=== PATIENT | female | born 1960 | race Caucasian/White ===

== ENCOUNTER → 2017-10-07 | Outpatient (CLI) | payer SELFPAY ==
[2016-04-06 11:24] VITALS: BP 154/89
--- NOTE | 2017-10-07 17:00 | MG ---
HISTORY: SCREENING Comparison: September 28, 2014 FINDINGS: Bilateral CC and MLO projections of the right and left breast were obtained. Heterogeneously dense f ibroglandular tissue is seen to be present without suspicious interval change. No significant braxton ectural distortion, mass or clustered microcalcifications can be observed to suggest malignancy. No skin thickening or nipple retraction is appreciated. No pathological lymphadenopathy can be identif ied. IMPRESSION: NO RADIOGRAPHIC EVIDENCE OF MALIGNANCY. ACR CATEGORY I - NEGATIVE EXAM. FOLLOW-UP EXAM 1 YEAR. Diagnostic CAD was utilized and reviewed. * 0 (ZERO) - ASSESSMENT INCOMPLETE; ADDITIONAL IMAGING IS NEEDED. * / (ONE) - NEGATIVE. * 2/II (TWO) - BENIGN FINDINGS. * 3/III (THREE) - PROBABLY BENIGN FINDING; SHORT INTERVAL FOLLOW-UP SUGGESTED. * 4/IV (FOUR) - SUSPICIOUS ABNORMALITY; BIOPSY SHOULD BE CONSIDERED. * 5/V - HIGHLY SUSPICIOUS OF MALIGNANCY; BIOPSY SHOULD BE PERFORMED. A NEGATIVE X-RAY REPORT SHOULD NOT DELAY BIOPSY IF A DOMINANT OR CLINICALLY SUSPICIOUS MASS IS PRESENT; 4 TO 8 PERCENT OF CANCERS ARE NOT IDENTIFIED BY X-RAY. A NEGA TIVE REPORT MAY REINFORCE THE CLINICAL IMPRESSION. ADENOSIS AND DENSE BREASTS MAY OBSCURE AN UNDERLY ING NEOPLASM. Reported By:
== END ==
LOC: RAD 09:10
PROVIDERS: ATTEND Specialist
DX: Z12.31 Encounter for screening mammogram for malignant neoplasm of breast (principal)
CPT/HCPCS: 77067

== ENCOUNTER 2020-05-16 18:54 | Inpatient (IN) ==
--- NOTE | 2020-05-16 19:59 | DR.GENAD ---
HPI Time Seen Time Seen by Provider: 05/16/20 19:45 PCP Primary Care Physician: debra HPI Comment HPI Comment: PATIENT 59YR OLD FEMALE WITH INCREASING SOB, COUGH AND FEVER TIMES 9 DAYS. GETTING WORSE. COVID POSITIVE 12 DAYS AAGO. PATIENT IS WEAK AND FATIGUE. SHE IS MORE SOB ON EXERTION AND O2 SAT DECREASES ON EXERTION. PATIENT ALSO HAVE GENERALIZED MUSCLE PAIN. TEMP WAS HIGHER THEN WENT LOW GRADE NOW SPIKING TEMP AGAIN. PATIENT SAID SHE IS NOT FEELING WELL. HISTORY HTN AND DM. SHE IS A NON SMOKER. Complaint/Symptoms Chief Complaint Doctors Comments: FEVER, COUGH AND SOB. COVID POSITIVE 12DAYS AGO. Chief Complaint:: PT STATES" I BEEN SICK FOR 12 DAYS I TESTED POSITIVE FOR THE COVID 19. I'M BURNING UP WITH A FEVER AND CAN'T BREATHE. I'VE GOT A RASH UNDER MY BREAST AND I'VE HAD DIARRHEA" COVID-19 Coronavirus risk:travel/contact w/high risk person: Yes Has patient experienced Coronavirus symptoms: Yes Coronavirus symptoms experienced: Fever and Shortness of Breath Nurses notes reviewed Nurses Notes Review: Yes Source History Provided: Patient Mode of Arrival Mode of Arrival: Ambulatory Timing Onset of Chief Complaint: 05/03/20 Came on: Gradually Duration Duration: Constant Duration: Days Severity Severity: Moderate Modifying Factors Worsens:: EXERTION Improves:: REST. Associated Signs and Symptoms Associated Signs and Symptoms: GENERALIZED WEAKNESS. Other History Other History: HISTORY DMAND HTN. PMH PMH Past Medical History: Yes Past Medical History: Anxiety, Depression, Diabetes, Hypertension and Hypothyroidism Past Surgical History: Yes Surgical History: and Cholecystectomy Family History History of Family Medical Conditions: No Social History Do you use any recreational Drugs:: No Travel Risk Coronavirus risk:travel/contact w/high risk person: Yes Has patient experienced Coronavirus symptoms: Yes Coronavirus symptoms experienced: Fever and Shortness of Breath Infectious screening In the last 2 months have you had wt loss of >10#?: NO Have you had fever, night sweats or hemotysis?: No Have you traveled outside the country in the last 6 months?: No Isolation: Standard ROS Review of Systems Constitutional: See HPI, Chills, Fever, Malaise, Weakness and Fatigue Eyes: No Symptoms Reported and See HPI; negative Blurred Vision and Diplopia ENTM: See HPI and Nose Congestion; negative Ear Pain, Nose Discharge and Throat Pain Respiratoy: Non-Productive Cough and Short of Breath; negative Wheezing Cardiovascular: See HPI and Chest Pain; negative Edema Gastrointestinal/Abdominal: No Symptoms Reported and See HPI; negative Abdominal Pain, Nausea and Vomiting Genitourinary: No Symptoms Reported and See HPI; negative Dysuria, Frequency and Hematuria Neurological: See HPI, Headache, Weakness and Dizziness Musculoskeletal: See HPI and Muscle Pain; negative Back Pain Integumentary: See HPI and Dryness; negative Change in Color, Rash and Juandice Hematologic/Lymphatic: No Symptoms Reported and See HPI; negative Easy Bruising and Swollen Glands Endocrine: See HPI and Decreased Appetite; negative Increased Thirst and Increased Urine Psychiatric: No Symptoms Reported and See HPI All Other Systems: Reviewed and Negative PE Vital Signs Vitals: Temperature 98.2 F Pulse Rate [Right] 81 Pulse Rate 88 Respiratory Rate 22 Blood Pressure [Left Arm] 140/68 Blood Pressure 126/60 O2 Sat by Pulse Oximetry 95 General Limitations: No Limitations General Appearance: Alert and In No Apparent Distress Head Head Exam: Normal Inspection and Atraumatic Eyes Eye exam: Normal Appearance and PERRL ENT ENT Exam: Normal Exam, Normal Oropharynx, Normal External Ear Exam and TM's Normal Bilaterally External Ear Exam: Normal External Inspection; negative Mastoid Tenderness TM/Canal Exam: Bilateral: Normal Nose Exam: Normal Nose Exam; negative Sinus Tenderness Mouth Exam: Normal Inspection; negative Lip Swelling and Tongue Swelling Throat Exam: Normal Inspection; negative Tonsillar Erythema, Tonsillomegaly and Tonsillar Exudate Neck Neck Exam: Normal Inspection and Trachea Midline; negative Tenderness and Lymphadenopathy Chest Chest Inspection: Normal Inspection and Symmetric Chest Wall Rise; negative Tenderness Respiratory Respiratory Exam: Normal Lung Sounds Bilat and Respiratory Distress; negative Accessory Muscle Use and Chest Wall Tenderness Respiratory Exam: Bilateral: Rhonchi and Lower: Rhonchi Cardiovascular Cardiovascular Exam: Regular Rate, Normal Rhythm and Normal Heart Sounds; negative Systolic Murmur and Diastolic Murmur Abdominal Exam Abdominal Exam: Normal Inspection, Normal Bowel Sounds and Soft; negative Tenderness Extremities Extremities Exam: Normal Inspection and Normal Capillary Refill; negative Tenderness, Edema and Calf Tenderness Back Back Exam: Normal Inspection; negative (R) CVA Tenderness and (L) CVA Tenderness Neurologic Neurological Exam: Alert, Oriented X3 and CN II-XII Intact; negative Motor Sensory Deficit Psychiatric Psychiatric Exam: Normal Affect and Normal Mood Skin Skin Exam: Dry MDM Differential Diagnosis Differential Diagnosis: PNEUMONIA, BRONCHITIS, UTI, SEPSIS, COVID POSITIVE. COURSE Treatment Treatment: SEE ORDERS. NS AND ROCEPHIN IN ER. Consultation Consultation Comments: DISCUSSED PATIENT WITH DR. TIWARI. HE WILL ADMIT PATIENT. Education/Counseling Education/Counseling: Patient Educated On: Diagnosis ROR Labs Reviewed Laboratory Results Reviewed?: Yes Result Diagrams: 05/17/20 04:00 05/17/20 04:00 Laboratory: WBC 7.2 X10^3/uL (3.6-10.0) 05/16/20 20:15 RBC 3.86 X10^6/uL (3.5-5.4) 05/16/20 20:15 Hgb 11.0 g/dL (12.0-16.0) L 05/16/20 20:15 Hct 32.8 % (36.0-47.0) L 05/16/20 20:15 MCV 84.9 fL (80.0-100.0) 05/16/20 20:15 MCH 28.5 pg (27.0-34.0) 05/16/20 20:15 MCHC 33.6 g/dL (33.0-35.0) 05/16/20 20:15 RDW 14.1 % (11.6-16.5) 05/16/20 20:15 Plt Count 537 X10^3/uL (150.0-450.0) H 05/16/20 20:15 MPV 6.5 fL (7.4-11.0) L 05/16/20 20:15 Neut % (Auto) 54.9 % (42.0-75.0) 05/16/20 20:15 Lymph % (Auto) 35.9 % (21.0-51.0) 05/16/20 20:15 [place] % (Auto) 6.3 % (0.0-13.0) 05/16/20 20:15 Eos % (Auto) 1.8 % (0.9-2.9) 05/16/20 20:15 Baso % (Auto) 1.1 % (0.2-1.0) H 05/16/20 20:15 Neut # (Auto) 3.9 x10^3/uL (2.2-4.8) 05/16/20 20:15 Lymph # (Auto) 2.6 X10^3/uL (1.3-2.9) 05/16/20 20:15 [place] # (Auto) 0.5 x10^3/uL (0.3-0.8) 05/16/20 20:15 Eos # (Auto) 0.1 x10^3/uL (0.0-0.2) 05/16/20 20:15 Baso # (Auto) 0.1 X10^3/uL (0.0-0.1) 05/16/20 20:15 Absolute Nucleated RBC 0.0 /100WBC 05/16/20 20:15 Sample Site Rr 05/16/20 20:02 ABG pH 7.520 (7.35-7.45) H 05/16/20 20:02 ABG pCO2 34.0 mmHg (35.0-45.0) L 05/16/20 20:02 ABG pO2 66.0 mmHg (80.0-100.0) L 05/16/20 20:02 ABG HCO3 27.8 mmol/L (22-26) H 05/16/20 20:02 ABG O2 Saturation 95.0 % (90-100) 05/16/20 20:02 ABG Base Excess 5.0 mmol/L (-2.0-2.0) H 05/16/20 20:02 Jigar Test Pos 05/16/20 20:02 A-a Gradient 41.0 mmHg 05/16/20 20:02 FiO2 21.0 05/16/20 20:02 Blood Gas Comments Ivania well sw 05/16/20 20:02 Sodium 137 mmol/L (136-145) 05/16/20 20:15 Corrected Sodium 138 mmol/L (136-145) 05/16/20 20:15 Potassium 3.5 mmol/L (3.5-5.1) 05/16/20 20:15 Chloride 100 mmol/L (98-107) 05/16/20:15 Carbon Dioxide 28.0 mmol/L (21-32) 05/16/20 20:15 BUN 10 mg/dL (7-18) 05/16/20 20:15 Creatinine 0.88 mg/dL (0.55-1.02) 05/16/20 20:15 Est GFR (MDRD) Af Amer > 60 (>60) 05/16/20 20:15 Est GFR (MDRD) Non-Af > 60 (>60) 05/16/20 20:15 Glucose 142 mg/dL (65-99) H 05/16/20 20:15 Lactic Acid 1.5 mmol/L (0.4-2.0) 05/16/20 20:15 Calcium 8.8 mg/dL (8.5-10.1) 05/16/20 20:15 Corrected Calcium 10.0 mg/dL (8.5-10.1) 05/16/20 20:15 Ferritin 629 ng/mL (8-252) H 05/16/20 20:15 Total Bilirubin 0.20 mg/dL (0.2-1.0) 05/16/20 20:15 AST 85 Units/L (15-37) H 05/16/20 20:15 ALT 130 Units/L (12-78) H 05/16/20 20:15 Alkaline Phosphatase 60 Units/L (46-116) 05/16/20 20:15 Lactate Dehydrogenase 339 Units/L (81-234) H 05/16/20 21:02 C-Reactive Protein 143.40 mg/L (0-3.0) H 05/16/20 21:02 Total Protein 7.3 g/dL (6.4-8.2) 05/16/20 20:15 Albumin 2.5 g/dL (3.4-5.0) L 05/16/20 20:15 Globulin 4.8 g/dL (2.5-4.5) H 05/16/20 20:15 Albumin/Globulin Ratio 0.5 Ratio (1.1-2.1) L 05/16/20 20:15 Specimen Type Clean catch urine 05/16/20 19:59 Urine Color Yellow (YELLOW) 05/16/20 19:59 Urine Appearance Clear (CLEAR) 05/16/20 19:59 Urine pH 6.5 (5.0 - 8.0) 05/16/20 19:59 Ur Specific [place] 1.005 (1.000-1.030) 05/16/20 19:59 Urine Protein Negative (NEGATIVE) 05/16/20 19:59 Urine Glucose (UA) Negative (NEGATIVE) 05/16/20 19:59 Urine Ketones Negative (NEGATIVE) 05/16/20 19:59 Urine Occult Blood 1+ (NEGATIVE) 05/16/20 19:59 Urine Nitrite Negative (NEGATIVE) 05/16/20 19:59 Urine Bilirubin Negative (NEGATIVE) 05/16/20 19:59 Urine Urobilinogen Normal (NORMAL) 05/16/20 19:59 Ur Leukocyte Esterase 1+ (NEGATIVE) 05/16/20 19:59 Urine RBC 3-5 /HPF (0-3) A 05/16/20 19:59 Urine WBC 3-5 /HPF (0-5) 05/16/20 19:59 Ur Squamous Epith Cells Few /HPF (NEGATIVE) 05/16/20 19:59 Urine Bacteria Trace /HPF (NEGATIVE) 05/16/20 19:59 Ur Culture Indicated? No/not indicated 05/16/20 19:59 Miscellaneous Test Cancelled 05/16/20 21:34 Other Results Comments: FINDINGS Heart size is enlarged. Bilateral perihilar and patchy upper and lower lung zone airspace opacities. More confluent 2 cm rounded opacity seen at the right upper lung zone. No large pleural effusion or pneumothorax. Moderate multilevel spondylosis. IMPRESSION Bilateral perihilar and patchy upper and lower lung zone airspace opacities, which may represent vascular congestion/edema or infiltrates. Follow-up is recommended. Confluent 2 cm opacity at the right upper lung zone, concerning for a pulmonary nodule. Recommend CT chest for further assessment. XRAY XRAY Interpreted by: Radiologist (REPORT NOTED AND DISCUSSED WITH PATIENT.) and Self (PNEUMONIA.) Opioid Opioid Risk Tool Age (Kirit box if 16-45): No History of Preadolescent Sexual Abuse: No Total: 0 Total Score Risk Category: Low Risk Copyright: Abel BOURGEOIS predicting aberrant behaviors Diagnosis Discharge Problem: Hypoxia, SOB (shortness of breath), COVID-19 virus infection Pneumonia Qualifiers: Pneumonia type: due to unspecified organism Laterality: bilateral Lung location: lower lobe of lung Qualified Code(s): J18.9 - Pneumonia, unspecified organism
[2020-05-16 20:22] LABS: BILIRUBIN,URINE NEGATIVE (NEGATIVE); BLOOD/HEMOGLOBIN,URINE 1+ (NEGATIVE); GLUCOSE, URINE NEGATIVE (NEGATIVE); KETONES,URINE NEGATIVE (NEGATIVE); LEUKOCYTE ESTERASE ,URINE 1+ (NEGATIVE); NITRITES,URINE NEGATIVE (NEGATIVE); PH,URINE 6.5 (5.0 - 8.0); PROTEIN,URINE NEGATIVE (NEGATIVE); UROBILINOGEN,URINE NORMAL (NORMAL)
[2020-05-16 20:24] LABS: APPEARANCE,URINE CLEAR (CLEAR); COLOR,URINE YELLOW (YELLOW)
[2020-05-16 20:29] LABS: BACTERIA,URINE TRACE /HPF (NEGATIVE); SQUAMOUS EPITHELIAL CELL,UR FEW /HPF (NEGATIVE)
[2020-05-16 20:31] LABS: BASOPHILS # (AUTO) 0.1 X10^3/uL (0.0-0.1); BASOPHILS % (AUTO) 1.1 % (0.2-1.0); EOSINOPHILS # (AUTO) 0.1 x10^3/uL (0.0-0.2); EOSINOPHILS % (AUTO) 1.8 % (0.9-2.9); HEMATOCRIT 32.8 % (36.0-47.0); LYMPHOCYTES # (AUTO) 2.6 X10^3/uL (1.3-2.9); LYMPHOCYTES % (AUTO) 35.9 % (21.0-51.0); MEAN CORPUSCULAR HEMOGLOBIN 28.5 pg (27.0-34.0); MEAN CORPUSCULAR HGB CONC 33.6 g/dL (33.0-35.0); MEAN CORPUSCULAR VOLUME 84.9 fL (80.0-100.0); MEAN PLATELET VOLUME 6.5 fL (7.4-11.0); MONOCYTES # (AUTO) 0.5 x10^3/uL (0.3-0.8); MONOCYTES % (AUTO) 6.3 % (0.0-13.0); NEUTROPHILS # (AUTO) 3.9 x10^3/uL (2.2-4.8); NEUTROPHILS % (AUTO) 54.9 % (42.0-75.0); PLATELET COUNT 537 X10^3/uL (150.0-450.0); RED BLOOD COUNT 3.86 X10^6/uL (3.5-5.4); RED CELL DISTRIBUTION WIDTH 14.1 % (11.6-16.5); WHITE BLOOD COUNT 7.2 X10^3/uL (3.6-10.0)
[2020-05-16 20:42] LABS: ALANINE AMINOTRANSFERASE 130 Units/L (12-78); ALBUMIN 2.5 g/dL (3.4-5.0); ALKALINE PHOSPHATASE 60 Units/L (46-116); ASPARTATE AMINO TRANSFERASE 85 Units/L (15-37); BLOOD UREA NITROGEN 10 mg/dL (7-18); CALCIUM 8.8 mg/dL (8.5-10.1); CHLORIDE 100 mmol/L (98-107); COR NA(FOR HYPERGLY) 138 mmol/L (136-145); CREATININE 0.88 mg/dL (0.55-1.02); SODIUM 137 mmol/L (136-145); TOTAL PROTEIN 7.3 g/dL (6.4-8.2); eGFR NON BLACK RACES > 60 (>60)
[2020-05-16 20:53] LABS: ABG ALLEN TEST POS; ABG HCO3 27.8 mmol/L (22-26)
--- NOTE | 2020-05-16 20:59 | RAD ---
HISTORYSOBSTUDYCHEST, 1 VIEWCOMPARISONNoneFINDINGSHeart size is enlarged. Bilateral perihilar and patchy upper and lower lung zone airspace opacities. More confluent 2 cm rounded opacity seen at the right upper lung zone. No large pleural effusion or pneumothorax. Moderate multilevel spondylosis.IMPRESSIONBilateral perihilar and patchy upper and lower lung zone airspace opacities, which may represent vascular congestion/edema or infiltrates. Follow-up is recommended.Confluent 2 cm opacity at the right upper lung zone, concerning for a pulmonary nodule. Recommend CT chest for further assessment.Electronically signed by: Kamala Coulter (May 16, 2020 20:58:06)
[2020-05-16] MEDS ORDERED: NS 1000 ML 1,000 ML IV ONE (21:07)
[2020-05-16] MEDS ORDERED: ROCEPHIN VIAL 1 GRAM 1 G in NS 100 ML IV + SPIKE MINIBAG* 100 ML IV ONE (21:08)
[2020-05-16] MEDS ORDERED: ROCEPHIN VIAL 1 GRAM ONE (21:22)
[2020-05-16] MEDS ORDERED: NS 1000 ML 1,000 ML ONE (21:23)
[2020-05-16] MEDS ORDERED: NS 100 ML IV + SPIKE MINIBAG* 100 ML IV ONE (21:23)
[2020-05-16 21:28] LABS: LACTIC ACID 1.5 mmol/L (0.4-2.0)
[2020-05-16] MEDS ORDERED: TUSSIONEX PENNKINETIC SUSP PO PRN (22:19)
[2020-05-16] MEDS ORDERED: ZITHROMAX INJ 500 MG VIAL IV ONE (22:29)
[2020-05-16] MEDS ORDERED: NS 250 ML IV 250 ML IV ONE (22:29)
[2020-05-16] MEDS ORDERED: NS 1/2 1000 ML IV 1,000 ML IV ONE (22:29)
[2020-05-16] MEDS: NS 1/2 1000 ML IV 1,000 ML IV SCH (22:52)
[2020-05-16] MEDS: ZITHROMAX INJ 500 MG VIAL 500 MG in NS 250 ML IV 250 ML IV SCH (22:55)
[2020-05-16] MEDS: VENTOLIN or PROAIR HFA IN PRN (23:00)
[2020-05-17 05:43] LABS: BASOPHILS % (AUTO) 0.7 % (0.2-1.0); EOSINOPHILS # (AUTO) 0.1 x10^3/uL (0.0-0.2); EOSINOPHILS % (AUTO) 1.8 % (0.9-2.9); HEMATOCRIT 33.8 % (36.0-47.0); HEMOGLOBIN 11.3 g/dL (12.0-16.0); LYMPHOCYTES # (AUTO) 2.9 X10^3/uL (1.3-2.9); LYMPHOCYTES % (AUTO) 39.7 % (21.0-51.0); MEAN CORPUSCULAR HEMOGLOBIN 28.4 pg (27.0-34.0); MEAN CORPUSCULAR HGB CONC 33.3 g/dL (33.0-35.0); MEAN CORPUSCULAR VOLUME 85.2 fL (80.0-100.0); MEAN PLATELET VOLUME 7.3 fL (7.4-11.0); MONOCYTES # (AUTO) 0.6 x10^3/uL (0.3-0.8); MONOCYTES % (AUTO) 8.4 % (0.0-13.0); NEUTROPHILS # (AUTO) 3.6 x10^3/uL (2.2-4.8); NEUTROPHILS % (AUTO) 49.4 % (42.0-75.0); PLATELET COUNT 537 X10^3/uL (150.0-450.0); RED BLOOD COUNT 3.97 X10^6/uL (3.5-5.4); RED CELL DISTRIBUTION WIDTH 13.9 % (11.6-16.5); WHITE BLOOD COUNT 7.2 X10^3/uL (3.6-10.0)
[2020-05-17 06:20] LABS: ALANINE AMINOTRANSFERASE 138 Units/L (12-78); ALBUMIN 2.4 g/dL (3.4-5.0); ALKALINE PHOSPHATASE 58 Units/L (46-116); ASPARTATE AMINO TRANSFERASE 78 Units/L (15-37); BLOOD UREA NITROGEN 9 mg/dL (7-18); CALCIUM 8.8 mg/dL (8.5-10.1); CARBON DIOXIDE 29.5 mmol/L (21-32); CHLORIDE 103 mmol/L (98-107); COR CA(FOR HYPOALB) 10.1 mg/dL (8.5-10.1); COR NA(FOR HYPERGLY) 138 mmol/L (136-145); CREATININE 0.78 mg/dL (0.55-1.02); SODIUM 138 mmol/L (136-145); eGFR NON BLACK RACES > 60 (>60)
[2020-05-17] MEDS: VENTOLIN or PROAIR HFA IN PRN ×2 (08:30→12:00)
[2020-05-17] MEDS: ZOSYN VIAL 3.375 GRAMS 3.375 G in NS 100 ML IV + SPIKE MINIBAG* 100 ML IV SCH ×2 (08:56→17:34)
[2020-05-17] MEDS: ROBITUSSIN DM PO SCH ×4 (08:57→22:16)
[2020-05-17] MEDS: VSL#3 PO SCH (08:57)
[2020-05-17] MEDS ORDERED: REMDESIVIR (INVESTIGATIONAL DRUG GS-5734) 200 MG in NS 250 ML IV 250 ML IV NR (09:00)
[2020-05-17 09:12] LABS: HEMOGLOBIN A1C 6.4 %
[2020-05-17 09:28] LABS: CKMB % 3.7 % (<4); CREATINE KINASE 27 Units/L (26-192); CREATINE KINASE MB < 1.0 ng/mL (0-4.0); TROPONIN I < 0.02 ng/mL (0-1.5)
[2020-05-17] MEDS ORDERED: NORCO 5/325 MG TAB PO PRN (09:57)
[2020-05-17] MEDS: LOVENOX INJ 40 MG SYR SC SCH (10:25)
[2020-05-17 10:31] VITALS: BMI 27.1
[2020-05-17] MEDS: ZOFRAN INJ 4 MG VIAL IVP PRN ×2 (10:41→17:50)
[2020-05-17] MEDS: VENTOLIN or PROAIR HFA IN SCH ×3 (14:26→20:00)
--- NOTE | 2020-05-17 14:30 | CT ---
HISTORYShortness of breath, hypoxia, COVID-19 positiveSTUDYCTA chest with contrast for pulmonary embolusTechnique: Axial post-contrast images with coronal, sagittal, and 3 dimensional maximum intensity projection images obtained and evaluated. Dose reduction procedures were used with mA/kv adjusted for body size.COMPARISONNoneFINDINGSThere is no evidence for acute pulmonary thromboembolic disease. Examination of the mediastinum demonstrated no evidence for mediastinal masses, enlarged mediastinal or enlarged hilar adenopathy, or significant aortic abnormality. No pleural effusions are identified. No chest wall or axillary abnormality is identified. Those portions of the upper abdominal organs visualized were within normal limits. Examination of the lung oliver demonstrated bilateral upper and lower lobe predominantly peripheral but some central ground-glass infiltrates demonstrating subpleural sparing. Findings are most consistent with multi focal pneumonia which could be bacterial, viral or atypical viral in origin. The pattern is consistent with COVID-19 lung involvement, however. No definite nodules, masses, areas of consolidation, or bronchiectasis identified.IMPRESSIONNo evidence for acute pulmonary thromboembolic diseaseBilateral upper and lower lobe predominantly peripheral but some central ground-glass infiltrates demonstrated pleural sparing and consistent with COVID-19 lung involvement.Electronically signed by: JASMYNE SO (May 17, 2020 14:28:43)
[2020-05-17 16:06] LABS: CKMB % 3.2 % (<4); CREATINE KINASE 31 Units/L (26-192); CREATINE KINASE MB < 1.0 ng/mL (0-4.0); TROPONIN I < 0.02 ng/mL (0-1.5)
[2020-05-17] MEDS: NS 1/2 1000 ML IV 1,000 ML IV SCH (17:34)
[2020-05-17] MEDS ORDERED: ZITHROMAX INJ 500 MG VIAL IV ONE (20:43)
[2020-05-17] MEDS ORDERED: NS 250 ML IV 250 ML IV ONE (20:43)
[2020-05-17] MEDS ORDERED: BUTT CREAM (COMPOUND) TOP PRN (21:30)
[2020-05-17] MEDS ORDERED: BUTT CREAM (COMPOUND) ONE (21:57)
[2020-05-17] MEDS ORDERED: ROCEPHIN VIAL 1 GRAM 1 G in NS 100 ML IV + SPIKE MINIBAG* 100 ML IV SCH (22:00)
[2020-05-17] MEDS: ZITHROMAX INJ 500 MG VIAL 500 MG in NS 250 ML IV 250 ML IV SCH (22:15)
[2020-05-17 23:37] LABS: CKMB % 3.6 % (<4); CREATINE KINASE 28 Units/L (26-192); CREATINE KINASE MB < 1.0 ng/mL (0-4.0); TROPONIN I < 0.02 ng/mL (0-1.5)
[2020-05-18] MEDS: ZOSYN VIAL 3.375 GRAMS 3.375 G in NS 100 ML IV + SPIKE MINIBAG* 100 ML IV SCH ×3 (00:55→16:53)
[2020-05-18] MEDS: NS 1/2 1000 ML IV 1,000 ML IV SCH ×3 (02:51→18:42)
[2020-05-18] MEDS ORDERED: NS 1/2 1000 ML IV 1,000 ML IV ONE (04:16)
[2020-05-18 05:19] LABS: BASOPHILS # (AUTO) 0.1 X10^3/uL (0.0-0.1); BASOPHILS % (AUTO) 0.9 % (0.2-1.0); EOSINOPHILS # (AUTO) 0.2 x10^3/uL (0.0-0.2); EOSINOPHILS % (AUTO) 2.1 % (0.9-2.9); HEMATOCRIT 30.5 % (36.0-47.0); HEMOGLOBIN 10.3 g/dL (12.0-16.0); LYMPHOCYTES # (AUTO) 2.6 X10^3/uL (1.3-2.9); LYMPHOCYTES % (AUTO) 36.6 % (21.0-51.0); MEAN CORPUSCULAR HEMOGLOBIN 28.5 pg (27.0-34.0); MEAN CORPUSCULAR HGB CONC 33.9 g/dL (33.0-35.0); MEAN PLATELET VOLUME 6.9 fL (7.4-11.0); MONOCYTES # (AUTO) 0.5 x10^3/uL (0.3-0.8); MONOCYTES % (AUTO) 6.3 % (0.0-13.0); NEUTROPHILS # (AUTO) 3.9 x10^3/uL (2.2-4.8); NEUTROPHILS % (AUTO) 54.1 % (42.0-75.0); PLATELET COUNT 543 X10^3/uL (150.0-450.0); RED BLOOD COUNT 3.62 X10^6/uL (3.5-5.4); WHITE BLOOD COUNT 7.2 X10^3/uL (3.6-10.0)
[2020-05-18 05:33] LABS: ALANINE AMINOTRANSFERASE 121 Units/L (12-78); ALBUMIN 2.2 g/dL (3.4-5.0); ALKALINE PHOSPHATASE 54 Units/L (46-116); ASPARTATE AMINO TRANSFERASE 50 Units/L (15-37); BLOOD UREA NITROGEN 8 mg/dL (7-18); CALCIUM 8.6 mg/dL (8.5-10.1); CARBON DIOXIDE 26.7 mmol/L (21-32); CHLORIDE 105 mmol/L (98-107); COR NA(FOR HYPERGLY) 141 mmol/L (136-145); CREATININE 0.76 mg/dL (0.55-1.02); SODIUM 141 mmol/L (136-145); TOTAL PROTEIN 6.5 g/dL (6.4-8.2); eGFR NON BLACK RACES > 60 (>60)
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
[2020-05-18] MEDS: LOVENOX INJ 40 MG SYR SC SCH (09:33)
[2020-05-18] MEDS: VSL#3 PO SCH (09:33)
[2020-05-18] MEDS: ROBITUSSIN DM PO SCH ×4 (09:33→21:20)
[2020-05-18] MEDS: REMDESIVIR (INVESTIGATIONAL DRUG GS-5734) 100 MG in NS 250 ML IV 250 ML IV SCH (09:33)
[2020-05-18] MEDS ORDERED: TORADOL 30 MG VIAL IVP ONE (09:52)
--- NOTE | 2020-05-18 11:05 | RAD ---
HISTORYPneumonia SOBSTUDYAP chestCOMPARISONJune 2019FINDINGSScattered, bilateral and patchy pulmonary infiltrates are present with stable cardiac size and configuration. There is no definite adenopathy, pneumothorax or pleural fluid. Pattern of pulmonary infiltration has changed slightly in the various pulmonary lobes since 2 days earlier. Slight interval improvement in the right upper lobe with progression on the left.IMPRESSIONBilateral pulmonary infiltrates consistent with multilobar pneumonia.Electronically signed by: MATTY STANLEY (May 18, 2020 11:03:21)
[2020-05-18 11:16] LABS: ABG BASE EXCESS 1.3 mmol/L (-2.0-2.0); ABG HCO3 24.9 mmol/L (22-26)
[2020-05-18] MEDS ORDERED: TORADOL 30 MG VIAL ONE (12:03)
[2020-05-18] MEDS: LOMOTIL PO PRN ×2 (12:09→21:39)
[2020-05-18] MEDS: VENTOLIN or PROAIR HFA IN SCH ×6 (12:15→21:02)
[2020-05-18] MEDS ORDERED: XYLOCAINE OINT 5% TOP ONE (13:40)
[2020-05-18] MEDS: ZOFRAN INJ 4 MG VIAL IVP PRN (14:19)
[2020-05-18] MEDS: KLONOPIN TAB 0.5 MG PO PRN (14:20)
--- NOTE | 2020-05-18 15:09 | PCM.PROG ---
Progress Note - Progress Note for Day of Date of Exam: 05/17/20 - Subjective Subjective: PT IS 59 WF ER ADMISSION WITH COMPLICATIONS FROM COVID 19, HYPOXIA, PNEUMONIA, DIARRHEA AND WEAKNESS. PT IS CURRENTLY ON IV ZITHROMAX AND ZOSYN AND REMDESIVIR. PT HAD CTA OF CHEST CONFIRMING BILATERAL PNEUMONIA. PT DENIES ANY CHEST PAIN, CO NAUSEA. PT IS CURRENTLY BEING TREATED WITH IV ZOFRAN. PT CO MID AND LOWER BACK PAIN, NORCO PO PRN ORDERED FOR PAIN. PT ENCOURAGED SPUTUM PRODUTION AND PULMONARY TOILETING - Past Medical Family Social History Past Med/Fam/Surg Hx: No changes since H&P Allergies: Allergies meperidine [From Demerol] Allergy (Verified 05/16/20 19:13) - Review of Systems ROS: No change since H&P - Vital Signs and I&O's Vital Signs: Temperature 98.2 F Pulse Rate [Right] 69 Pulse Rate 65 Respiratory Rate 16 Blood Pressure [Left Arm] 117/56 Blood Pressure 125/59 O2 Sat by Pulse Oximetry 93 Intake and Output: Intake & Output 05/16/20 05/17/20 05/18/20 05/19/20 11:59 11:59 11:59 11:59 Intake Total 795 / 795 4355 / 4355 Balance 795 / 795 4355 / 4355 - Physical Exam Oriented: Normal Eyes: Normal Ear: Normal Nose: Normal Throat: Normal Respiratory: Diminished, Wheezes Cardiovascular: Normal. negative: Edema : Normal Auscultation: Bowel Sounds: Increased Tenderness: Normal Skin: Decreased [place] Musculoskeletal: Normal Psychiatric: Anxiety Mood Description: Anxious Affect: Anxious Speech Pattern: Clear, Appropriate - Laboratory and Diagnostics Result Diagrams: 05/18/20 04:07 05/18/20 04:07 Labs: 05/16/20 21:02 Blood Blood Culture - Preliminary 05/16/20 20:15 Blood Blood Culture - Preliminary Laboratory WBC 7.2 X10^3/uL (3.6-10.0) 05/18/20 04:07 RBC 3.62 X10^6/uL (3.5-5.4) 05/18/20 04:07 Hgb 10.3 g/dL (12.0-16.0) L 05/18/20 04:07 Hct 30.5 % (36.0-47.0) L 05/18/20 04:07 MCV 84.0 fL (80.0-100.0) 05/18/20 04:07 MCH 28.5 pg (27.0-34.0) 05/18/20 04:07 MCHC 33.9 g/dL (33.0-35.0) 05/18/20 04:07 RDW 14.0 % (11.6-16.5) 05/18/20 04:07 Plt Count 543 X10^3/uL (150.0-450.0) H 05/18/20 04:07 MPV 6.9 fL (7.4-11.0) L 05/18/20 04:07 Neut % (Auto) 54.1 % (42.0-75.0) 05/18/20 04:07 Lymph % (Auto) 36.6 % (21.0-51.0) 05/18/20 04:07 [place] % (Auto) 6.3 % (0.0-13.0) 05/18/20 04:07 Eos % (Auto) 2.1 % (0.9-2.9) 05/18/20 04:07 Baso % (Auto) 0.9 % (0.2-1.0) 05/18/20 04:07 Neut # (Auto) 3.9 x10^3/uL (2.2-4.8) 05/18/20 04:07 Lymph # (Auto) 2.6 X10^3/uL (1.3-2.9) 05/18/20 04:07 [place] # (Auto) 0.5 x10^3/uL (0.3-0.8) 05/18/20 04:07 Eos # (Auto) 0.2 x10^3/uL (0.0-0.2) 05/18/20 04:07 Baso # (Auto) 0.1 X10^3/uL (0.0-0.1) 05/18/20 04:07 Absolute Nucleated RBC 0.0 /100WBC 05/18/20 04:07 ESR 106 MM/HOUR (0-20) H 05/18/20 04:07 D-Dimer 661 ng/mL (0-400) H* 05/17/20 04:00 Sample Site Left brachial 05/18/20 11:05 ABG pH 7.460 (7.35-7.45) H 05/18/20 11:05 ABG pCO2 35.0 mmHg (35.0-45.0) 05/18/20 11:05 ABG pO2 78.0 mmHg (80.0-100.0) L 05/18/20 11:05 ABG HCO3 24.9 mmol/L (22-26) 05/18/20 11:05 ABG O2 Saturation 96.0 % (90-100) 05/18/20 11:05 ABG Base Excess 1.3 mmol/L (-2.0-2.0) 05/18/20 11:05 Jigar Test Na 05/18/20 11:05 A-a Gradient 28.0 mmHg 05/18/20 11:05 FiO2 21.0 05/18/20 11:05 Blood Gas Comments Ivania well aw 05/18/20 11:05 Sodium 141 mmol/L (136-145) 05/18/20 04:07 Corrected Sodium 141 mmol/L (136-145) 05/18/20 04:07 Potassium 3.5 mmol/L (3.5-5.1) 05/18/20 04:07 Chloride 105 mmol/L (98-107) 05/18/20 04:07 Carbon Dioxide 26.7 mmol/L (21-32) 05/18/20 04:07 BUN 8 mg/dL (7-18) 05/18/20 04:07 Creatinine 0.76 mg/dL (0.55-1.02) 05/18/20 04:07 Est GFR (MDRD) Af Amer > 60 (>60) 05/18/20 04:07 Est GFR (MDRD) Non-Af > 60 (>60) 05/18/20 04:07 Glucose 119 mg/dL (65-99) H 05/18/20 04:07 Hemoglobin A1c 6.4 % 05/17/20 04:00 Lactic Acid 1.5 mmol/L (0.4-2.0) 05/16/20 20:15 Calcium 8.6 mg/dL (8.5-10.1) 05/18/20 04:07 Corrected Calcium 10.0 mg/dL (8.5-10.1) 05/18/20 04:07 Ferritin 549 ng/mL (8-252) H 05/17/20 04:00 Total Bilirubin 0.10 mg/dL (0.2-1.0) L 05/18/20 04:07 AST 50 Units/L (15-37) H 05/18/20 04:07 ALT 121 Units/L (12-78) H 05/18/20 04:07 Alkaline Phosphatase 54 Units/L (46-116) 05/18/20 04:07 Lactate Dehydrogenase 339 Units/L (81-234) H 05/16/20 21:02 Creatine Kinase 28 Units/L (26-192) 05/17/20 21:31 CK-MB (CK-2) < 1.0 ng/mL (0-4.0) 05/17/20 21:31 CK/CKMB % Calc 3.6 % (<4) 05/17/20 21:31 Troponin I < 0.02 ng/mL (0-1.5) 05/17/20 21:31 C-Reactive Protein 71.40 mg/L (0-3.0) H 05/18/20 04:07 Total Protein 6.5 g/dL (6.4-8.2) 05/18/20 04:07 Albumin 2.2 g/dL (3.4-5.0) L 05/18/20 04:07 Globulin 4.3 g/dL (2.5-4.5) 05/18/20 04:07 Albumin/Globulin Ratio 0.5 Ratio (1.1-2.1) L 05/18/20 04:07 Specimen Type Clean catch urine 05/16/20 19:59 Urine Color Yellow (YELLOW) 05/16/20 19:59 Urine Appearance Clear (CLEAR) 05/16/20 19:59 Urine pH 6.5 (5.0 - 8.0) 05/16/20 19:59 Ur Specific [place] 1.005 (1.000-1.030) 05/16/20 19:59 Urine Protein Negative (NEGATIVE) 05/16/20 19:59 Urine Glucose (UA) Negative (NEGATIVE) 05/16/20 19:59 Urine Ketones Negative (NEGATIVE) 05/16/20 19:59 Urine Occult Blood 1+ (NEGATIVE) 05/16/20 19:59 Urine Nitrite Negative (NEGATIVE) 05/16/20 19:59 Urine Bilirubin Negative (NEGATIVE) 05/16/20 19:59 Urine Urobilinogen Normal (NORMAL) 05/16/20 19:59 Ur Leukocyte Esterase 1+ (NEGATIVE) 05/16/20 19:59 Urine RBC 3-5 /HPF (0-3) A 05/16/20 19:59 Urine WBC 3-5 /HPF (0-5) 05/16/20 19:59 Ur Squamous Epith Cells Few /HPF (NEGATIVE) 05/16/20 19:59 Urine Bacteria Trace /HPF (NEGATIVE) 05/16/20 19:59 Ur Culture Indicated? No/not indicated 05/16/20 19:59 Miscellaneous Test Cancelled 05/16/20 21:34 - Plan (1) Pneumonia Status: Acute Plan: ICU ISOLATION UNIT. SUPPLEMENTAL O2, ABG ON ADMISSION. REPEAT AM CRP AND SED RATE, REPEAT ROOM AIR ABG. SERIAL CE AND EKG. IV REMDESIVIR, ZITHROMAX AND ZOSYN. IV HYDRATION, ELECTROLYTE REPLACEMENT. ABG ON ADMISSION, BS CONTROL (2) COVID-19 virus infection Status: Acute (3) Diabetes Status: Acute (4) Hypoxia Status: Acute (5) SOB (shortness of breath) Status: Acute
[2020-05-18] MEDS: ZITHROMAX INJ 500 MG VIAL 500 MG in NS 250 ML IV 250 ML IV SCH (21:39)
[2020-05-19] MEDS: VENTOLIN or PROAIR HFA IN SCH ×6 (00:52→21:35)
[2020-05-19] MEDS: ZOSYN VIAL 3.375 GRAMS 3.375 G in NS 100 ML IV + SPIKE MINIBAG* 100 ML IV SCH ×4 (01:15→23:52)
[2020-05-19 05:30] LABS: ABG BASE EXCESS 2.5 mmol/L (-2.0-2.0); ABG HCO3 26.3 mmol/L (22-26)
[2020-05-19 05:31] LABS: ABG ALLEN TEST POS
[2020-05-19 05:49] LABS: ALANINE AMINOTRANSFERASE 81 Units/L (12-78); ALBUMIN 2.1 g/dL (3.4-5.0); ALKALINE PHOSPHATASE 48 Units/L (46-116); ASPARTATE AMINO TRANSFERASE 28 Units/L (15-37); BLOOD UREA NITROGEN 12 mg/dL (7-18); CALCIUM 8.6 mg/dL (8.5-10.1); CHLORIDE 106 mmol/L (98-107); COR CA(FOR HYPOALB) 10.1 mg/dL (8.5-10.1); CREATININE 0.72 mg/dL (0.55-1.02); SODIUM 141 mmol/L (136-145); eGFR NON BLACK RACES > 60 (>60)
[2020-05-19 06:00] LABS: BASOPHILS # (AUTO) 0.1 X10^3/uL (0.0-0.1); BASOPHILS % (AUTO) 0.8 % (0.2-1.0); EOSINOPHILS # (AUTO) 0.1 x10^3/uL (0.0-0.2); EOSINOPHILS % (AUTO) 2.3 % (0.9-2.9); HEMATOCRIT 31.4 % (36.0-47.0); HEMOGLOBIN 10.6 g/dL (12.0-16.0); LYMPHOCYTES # (AUTO) 2.8 X10^3/uL (1.3-2.9); LYMPHOCYTES % (AUTO) 43.7 % (21.0-51.0); MEAN CORPUSCULAR HEMOGLOBIN 28.7 pg (27.0-34.0); MEAN CORPUSCULAR HGB CONC 33.9 g/dL (33.0-35.0); MEAN CORPUSCULAR VOLUME 84.6 fL (80.0-100.0); MEAN PLATELET VOLUME 6.8 fL (7.4-11.0); MONOCYTES # (AUTO) 0.5 x10^3/uL (0.3-0.8); MONOCYTES % (AUTO) 7.9 % (0.0-13.0); NEUTROPHILS # (AUTO) 2.9 x10^3/uL (2.2-4.8); NEUTROPHILS % (AUTO) 45.3 % (42.0-75.0); PLATELET COUNT 499 X10^3/uL (150.0-450.0); RED BLOOD COUNT 3.71 X10^6/uL (3.5-5.4); RED CELL DISTRIBUTION WIDTH 14.1 % (11.6-16.5); WHITE BLOOD COUNT 6.4 X10^3/uL (3.6-10.0)
[2020-05-19] MEDS: NS 1/2 1000 ML IV 1,000 ML IV SCH ×2 (06:19→20:00)
[2020-05-19 06:47] LABS: ERYTHROCYTE SEDIMENTATION RATE 87 MM/HOUR (0-20)
[2020-05-19] MEDS: REMDESIVIR (INVESTIGATIONAL DRUG GS-5734) 100 MG in NS 250 ML IV 250 ML IV SCH (08:29)
[2020-05-19] MEDS: VSL#3 PO SCH (09:05)
[2020-05-19] MEDS: ROBITUSSIN DM PO SCH ×4 (09:06→21:11)
[2020-05-19] MEDS: LOVENOX INJ 40 MG SYR SC SCH (09:47)
[2020-05-19] MEDS: LOMOTIL PO PRN (11:43)
[2020-05-19] MEDS ORDERED: TORADOL 30 MG VIAL IVP ONE (12:50)
[2020-05-19] MEDS: KLONOPIN TAB 0.5 MG PO PRN (17:06)
[2020-05-19] MEDS ORDERED: NS 1/2 1000 ML IV 1,000 ML IV ONE (19:46)
[2020-05-19] MEDS: ZITHROMAX INJ 500 MG VIAL 500 MG in NS 250 ML IV 250 ML IV SCH (22:00)
[2020-05-20] MEDS: VENTOLIN or PROAIR HFA IN SCH ×3 (01:05→08:48)
[2020-05-20 05:44] LABS: BASOPHILS # (AUTO) 0.1 X10^3/uL (0.0-0.1); BASOPHILS % (AUTO) 1.2 % (0.2-1.0); EOSINOPHILS # (AUTO) 0.2 x10^3/uL (0.0-0.2); EOSINOPHILS % (AUTO) 2.8 % (0.9-2.9); HEMATOCRIT 33.3 % (36.0-47.0); HEMOGLOBIN 11.1 g/dL (12.0-16.0); LYMPHOCYTES # (AUTO) 2.5 X10^3/uL (1.3-2.9); LYMPHOCYTES % (AUTO) 41.4 % (21.0-51.0); MEAN CORPUSCULAR HEMOGLOBIN 28.6 pg (27.0-34.0); MEAN CORPUSCULAR HGB CONC 33.5 g/dL (33.0-35.0); MEAN CORPUSCULAR VOLUME 85.3 fL (80.0-100.0); MEAN PLATELET VOLUME 7.1 fL (7.4-11.0); MONOCYTES # (AUTO) 0.5 x10^3/uL (0.3-0.8); MONOCYTES % (AUTO) 7.8 % (0.0-13.0); NEUTROPHILS # (AUTO) 2.9 x10^3/uL (2.2-4.8); NEUTROPHILS % (AUTO) 46.8 % (42.0-75.0); PLATELET COUNT 541 X10^3/uL (150.0-450.0); RED CELL DISTRIBUTION WIDTH 14.1 % (11.6-16.5); WHITE BLOOD COUNT 6.1 X10^3/uL (3.6-10.0)
[2020-05-20 05:50] LABS: ALANINE AMINOTRANSFERASE 83 Units/L (12-78); ALBUMIN 2.3 g/dL (3.4-5.0); ALKALINE PHOSPHATASE 52 Units/L (46-116); ASPARTATE AMINO TRANSFERASE 39 Units/L (15-37); BLOOD UREA NITROGEN 10 mg/dL (7-18); CALCIUM 8.4 mg/dL (8.5-10.1); CARBON DIOXIDE 25.7 mmol/L (21-32); CHLORIDE 106 mmol/L (98-107); COR CA(FOR HYPOALB) 9.8 mg/dL (8.5-10.1); CREATININE 0.89 mg/dL (0.55-1.02); SODIUM 140 mmol/L (136-145); TOTAL PROTEIN 6.3 g/dL (6.4-8.2); eGFR NON BLACK RACES > 60 (>60)
[2020-05-20 06:06] LABS: ABG BASE EXCESS 3.3 mmol/L (-2.0-2.0); ABG HCO3 26.8 mmol/L (22-26)
[2020-05-20] MEDS ORDERED: POTASSIUM CHL 40 MEQ/NS 0.45% 500 ML IV PRN (06:29)
[2020-05-20] MEDS ORDERED: KLOR-CON PO PRN (06:29)
[2020-05-20] MEDS ORDERED: K-DUR TAB 20 MEQ PO PRN (06:29)
[2020-05-20] MEDS ORDERED: K-RIDER 10 MEQ/NS 100 ML 10 MEQ/100 ML BAG IV PRN (06:29)
[2020-05-20] MEDS ORDERED: MICRO K EXTEN CAP 10 MEQ PO PRN (06:29)
[2020-05-20] MEDS ORDERED: POTASSIUM CHLORIDE LIQ 20 MEQ UDC PO PRN (06:29)
[2020-05-20] MEDS ORDERED: POTASSIUM CHL 60 MEQ/NS 0.45% 500 ML IV PRN (06:29)
--- NOTE | 2020-05-20 07:20 | RAD ---
HISTORYSOBSTUDYPortable AP [id number] stable cardiomegaly. Persistent bilateral infiltrates, primarily right base and left upper lobe. There is no evidence for complicating pneumothorax or developing pleural effusion.IMPRESSIONNo change in appearance of the chest since 2 days prior.Electronically signed by: MATTY STANLEY (May 20, 2020 07:19:01)
[2020-05-20] MEDS: ZOFRAN INJ 4 MG VIAL IVP PRN (08:05)
[2020-05-20] MEDS: ZOSYN VIAL 3.375 GRAMS 3.375 G in NS 100 ML IV + SPIKE MINIBAG* 100 ML IV SCH (08:06)
[2020-05-20] MEDS: VSL#3 PO SCH (08:44)
[2020-05-20] MEDS: REMDESIVIR (INVESTIGATIONAL DRUG GS-5734) 100 MG in NS 250 ML IV 250 ML IV SCH (08:44)
[2020-05-20] MEDS: ROBITUSSIN DM PO SCH (08:44)
[2020-05-20] MEDS ORDERED: LOVENOX INJ 30 MG SYR SC SCH (09:00)
[2020-05-20] MEDS: NS 1/2 1000 ML IV 1,000 ML IV SCH (11:17)
[2020-05-20 11:23] VITALS: BP 128/57
== END 2020-05-20 12:36 | disposition home or self-care (01) | DRG 177 ==
LOC: ER 18:55 → ICU 18:55 → OBSVTOIN 22:10 → ICU 22:24
PROVIDERS: ADMIT Family Medicine; ATTEND Internal Medicine
DX: E86.0 Dehydration; R50.9 Fever, unspecified; F41.8 Other specified anxiety disorders; M79.10 Myalgia, unspecified site; R19.7 Diarrhea, unspecified; R06.02 Shortness of breath; U07.1 COVID-19; J12.89 Other viral pneumonia
CPT/HCPCS: 36415; 36600; 71010; 71045; 71275; 80053; 81001; 82550; 82553; 82728; 82803; 83036; 83605; 83615; 83735; 84484; 85025; 85378; 85652; 86140; 87040; 93005; 94640; 96365; 96374; 99284; A4216; A4222; J0456; J0696; J1650; J1885; J2405; J2543; J7030; J7050